=== PATIENT | male | born 1980 | race African-American/Black ===

== ENCOUNTER 2023-08-22 20:48 | Emergency (ER) | payer SELFPAY ==
[~2023-08-22] VITALS: Ht 180.3 cm; Wt 95.0 kg
[2023-08-22 20:53] VITALS: BP 133/87; PULSE 129; RESP 16; TEMP 98.5; O2SAT 98
== END 2023-08-22 21:11 | disposition home or self-care (01) ==
LOC: ER 20:48
DX: Z00.00 Encounter for general adult medical examination without abnormal findings (principal); R53.81 Other malaise
CPT/HCPCS: 99283

== ENCOUNTER 2023-08-22 21:27 | Emergency (ER) | payer MEDICAID ==
[~2023-08-22] VITALS: Ht 177.8 cm; Wt 89.0 kg
[2023-08-22] MEDS ORDERED: HALOPERIDOL LACTATE 5MG/ML VIAL IM ONE (22:30)
[2023-08-22] MEDS ORDERED: LORAZEPAM 2MG/ML INJ IM ONE (22:30)
[2023-08-22] MEDS: DIPHENHYDRAMINE 50MG/ML VIAL IM PRN ×2 (22:49→22:57)
[2023-08-22 23:28] LABS: BASOPHILS % 0.5 % (0.0-2.0); EOSINOPHILS % 0.1 % (0.0-5.0); HEMATOCRIT. 45.9 % (42.0-52.0); HEMOGLOBIN. 15.3 g/dL (14.0-18.0); LYMPHOCYTES % 17.2 % (20.0-50.0); MEAN CORPUSCULAR HEMOGLOBIN 27.9 pg (28.0-32.0); MEAN CORPUSCULAR HGB CONC 33.3 g/dL (31.0-37.0); MEAN CORPUSCULAR VOLUME 83.8 fL (80.0-94.0); MEAN PLATELET VOLUME 8.3 fl (7.4-10.4); MONOCYTES % 5.7 % (2.0-8.0); NEUTROPHILS % 76.5 % (40.0-76.0); PLATELET 263 x1000/uL (130-400); RED BLOOD CELL COUNT 5.48 mill/uL (4.7-6.1); RED CELL DISTRIBUTION WIDTH 13.5 % (11.6-14.6)
[2023-08-22 23:44] LABS: ACETAMINOPHEN < 2 ug/mL (10-30); CALCIUM 9.9 mg/dL (8.7-10.4); CARBON DIOXIDE 18 mEq/L (21-32); CHLORIDE 105 mEq/L (98-107); CREATININE 1.6 mg/dL (0.6-1.3); ETHANOL BLOOD < 10 mg/dL (<10); GLUCOSE 156 mg/dL (70-105); POTASSIUM 3.6 mEq/L (3.5-5.1); SODIUM 138 mEq/L (136-145); UREA NITROGEN BLOOD 16 mg/dL (9-23)
[2023-08-22 23:50] VITALS: O2SAT 100
[2023-08-23 02:29] LABS: *AMPHETAMINES SCREEN URINE PRESUMPTIVE POSITIVE (NEGATIVE); *BARBITURATES SCREEN URINE NEGATIVE (NEGATIVE); *BENZODIAZEPINES SCREEN URINE NEGATIVE (NEGATIVE); *COCAINE SCREEN URINE NEGATIVE (NEGATIVE); ECSTASY MDMA SCREEN URINE NEGATIVE (NEGATIVE); METHADONE URINE SCREEN Neg (NEGATIVE); OPIATES URINE SCREEN NEGATIVE (NEGATIVE); PHENCYCLIDINE URINE SCREEN NEGATIVE (NEGATIVE)
[2023-08-23 08:00] VITALS: BP 116/65; PULSE 80; RESP 20; TEMP 98.3
== END 2023-08-23 09:24 | disposition home or self-care (01) ==
LOC: ER 21:27
DX: F22 Delusional disorders (principal); Z88.0 Allergy status to penicillin
CPT/HCPCS: 80048; 80307; 80329; 80320; 85025; 36415; 93005; 96372; 99285; 80305; J1200; J1630; J2060; G0480